=== PATIENT | female | born 1945 | race Caucasian/White ===

== ENCOUNTER 2016-11-09 08:56 | Day surgery (SDC) | payer MEDICARE, OTHER ==
[2016-10-24 13:55] VITALS: BMI 27.9
[2016-11-09] MEDS ORDERED: Midazolam 2 MG/2 ML VIAL ONE (12:58)
[2016-11-09] MEDS ORDERED: Propofol 10 mg/ml Inj (20 ML) ONE (12:58)
[2016-11-09] MEDS ORDERED: Lidocaine 1% Inj (20ml) ONE (14:29)
[2016-11-09] MEDS ORDERED: Bupivacaine HCl 0.25% PF (10 ml) Inj ONE (14:29)
[2016-11-09] MEDS ORDERED: Bupivacaine/Epi 0.25%-1:200,000 10 ml PF inj IJ ONE ×2 (14:29→14:46)
[2016-11-09] MEDS ORDERED: ISOSULFAN BLUE 10 MG/ML ML SC ONE (14:30)
[2016-11-09] MEDS ORDERED: Lactated Ringer's 1,000 ML IV ONE ×2 (14:40→16:50)
[2016-11-09] MEDS ORDERED: ceFAZolin IV 1 gm in Dextrose 50 ML IVPB ONE ×2 (14:46→14:59)
[2016-11-09] MEDS ORDERED: Succinylcholine Chloride 20 mg/ml Syr (5 ml) IV ONE (14:52)
[2016-11-09] MEDS ORDERED: HYDROmorphone 0.5 mg/0.5 ml ISec IVP PRN (16:32)
[2016-11-09] MEDS ORDERED: Neostigmine Methylsulfate 3mg/3ml Syringe IV ONE (16:35)
--- NOTE | 2016-11-09 16:42 | MAM ---
This specimen is submitted and available for review. The hook wire, micro clip and mass are centrally situated within the specimen. Pathology results are pending. Status post needle localization, specimen contains microclip, hook wire in its entirety and mass.
[2016-11-09 17:43] VITALS: O2SAT 100
[2016-11-09] MEDS ORDERED: Oxycodone/Acetaminophen 5/325 mg Tab PO PRN (18:01)
[2016-11-09 18:37] VITALS: BP 120/80; PULSE 73; RESP 20; TEMP 97.2
--- NOTE | 2016-11-12 14:46 | PCM.SURG1 ---
Surgeon's Initial Post Op Note - Surgeon's Notes Surgeon: Mohit Guevara MD Frontload Driver: NEVIN Sims Type of Anesthesia: General Endo Pre-Operative Diagnosis: Left Breast Cancer Operative Findings: Left Breast Cancer Post-Operative Diagnosis: Left Breast Cancer Operation Performed: Left Breast Quadrentectomy ( Lumpectomy) and SLND Biopsy Specimen/Specimens Removed: Left Breast Lumpectomy specimen. Left axillary lymph node sent for frozen Estimated Blood Loss: EBL {In ML}: 20 Blood Products Given: N/A Drains Used: No Drains Post-Op Condition: Good Date of Surgery/Procedure: 11/09/16 Time of Surgery/Procedure: 17:30
--- NOTE | 2016-11-12 21:33 | OP ---
PROCEDURE DATE: 11/09/2016 PREOPERATIVE DIAGNOSIS: Left breast cancer. POSTOPERATIVE DIAGNOSIS: Left breast cancer. PROCEDURE DONE: 1. Left breast quadrantectomy (Lumpectomy) 2. Axillary sentinel lymph node biopsy. SURGEON: Gray Guevara MD MANAGER WINTER: Margarette Pond. Margarette was present from the beginning up to the end of the procedure, helped in prepping and draping and closure of the wound. ANESTHESIA: General endotracheal tube anesthesia. ESTIMATED BLOOD LOSS: Around 20 mL. DRAINS: None. PATHOLOGY: 1. Left breast lumpectomy specimen was sent for pathology. 2. Two axillary lymph nodes were sent for frozen section. COMPLICATIONS: None. INTRAOPERATIVE FINDINGS: The patient had a left breast upper outer quadrant mass and the patient also had normal looking left axillary lymph nodes. INTRAOPERATIVE STEPS: This is a 70-year-old female who was diagnosed with left breast cancer and the patient was consented for left breast lumpectomy and sentinel lymph node dissection. The patient was brought to the OR and placed supine on the operating table. After induction of the anesthesia, the left breast was prepped and draped in the usual sterile fashion including the axilla and Lymphazurin dye was injected in the subdermal area of the nipple and breast massage was done and now an incision was made in the axilla and after incising the skin and subcutaneous tissue the Clavipactoral fascia was incised and 2 lymph nodes were excised and it was sent for frozen section and now with the curvilinear incision was made in the left upper quadrant. An upper and lower flap was created and dissection was carried down through the needle localized wire and the dissection was carried down surrounding the needle localized wire and the dissection was carried down up to the pectoral fascia medially, superiorly as well as inferiorly and laterally up to the serratus anterior and the pectoral fascia was excised and all the specimen was taken out and it was sent to the table for the pathology with intact guidewire and the radiological confirmation was received for the guidewire and the intraoperative frozen section of the left axillary lymph node was negative for malignancy. After that , the wound was irrigated and the wound was closed in 2 layers, subQ with 2-0 Vicryl and skin with a 4-0 Monocryl at both wound sites and a dry sterile dressing was applied. The patient tolerated the procedure well. Count of instruments and gauze was correct. There was no apparent complication. The patient was extubated in the OR, sent to the postanesthesia care unit in stable condition. Gray Guevara MD cc: [id number] TT: 11/12/2016 21:32:46 [email or web address]
== END 2016-11-09 18:46 | disposition home or self-care (01) ==
LOC: C.SDS 08:56
PROVIDERS: ATTEND Surgery Surgical Critical Care
DX: C50.812 Malignant neoplasm of overlapping sites of left female breast (principal)
CPT/HCPCS: 19281; 19301; 38525; 78195; 84233; 88305; 88307; 88331; 88342; J0690; J1885; J2001; J2250; J2405; J2704; J2710; J3010; J7120